=== PATIENT | female | born 1945 | race Caucasian/White ===

== ENCOUNTER 2018-05-03 14:35 | Emergency (ER) | payer OTHER ==
[~2018-05-03] VITALS: Ht 162.6 cm; Wt 81.6 kg
[2018-05-03 14:35] VITALS: BP_SYST 99
--- NOTE | 2018-05-03 14:40 | NUR ---
Patient to ER bed 08 to gown for evaluation. Side rails up.
[2018-05-03] MEDS ORDERED: NACL 0.9% 1,000 ML IV ONE (14:45)
[2018-05-03] MEDS ORDERED: ONDANSETRON HCL 4 MG/2 ML VIAL IVP ONE (14:45)
--- NOTE | 2018-05-03 14:45 | NUR ---
Pt brought by ambulance,A&Ox4, pt presents to ER with a syncope episode, BP prehospital 70/40, current BP 104/52 after 1 liter of NS administered by paramedics ,patient denies N/V, respirations even and unlabored , denies chest pain. pt states she is taking prophilactic TB medications due to possible TB exposure, pt placed on TB precautions, denies cough diaphoretic or fevers.
--- NOTE | 2018-05-03 14:50 | NUR ---
Dr Maciel at bedside examining patient
[2018-05-03 15:08] LABS: BASOPHILS % (AUTO) 0.2 % (0.0-2.0); EOSINOPHILS # (AUTO) 0.2 K/uL (0.0-0.4); EOSINOPHILS % (AUTO) 2.7 % (0.0-4.0); HEMOGLOBIN 12.7 g/dL (12.0-16.0); LYMPHOCYTES # (AUTO) 1.4 K/uL (1.0-5.5); LYMPHOCYTES % (AUTO) 18.4 % (20.5-51.5); MEAN CORPUSCULAR HEMOGLOBIN 30 pg (27-31); MEAN CORPUSCULAR HGB CONC 34 % (32-36); MEAN CORPUSCULAR VOLUME 90 fL (79.0-98.0); MONOCYTES # (AUTO) 0.5 K/uL (0.0-1.0); MONOCYTES % (AUTO) 6.8 % (1.7-9.3); NEUTROPHILS # (AUTO) 5.3 K/uL (1.8-7.7); NEUTROPHILS % (AUTO) 71.9 % (40.0-70.0); PLATELET COUNT (AUTO) 289 K/uL (130-430); RED BLOOD CELL COUNT(AUTO) 4.21 MIL/uL (4.2-6.2); RED CELL DISTRIBUTION WIDTH 14.1 % (9.0-15.0); WHITE BLOOD COUNT (AUTO) 7.4 K/uL (4.8-10.8)
[2018-05-03 15:27] LABS: CREATININE 0.84 mg/dL (0.55-1.30); POTASSIUM 3.7 mmol/L (3.5-5.1)
[2018-05-03 15:29] LABS: INR 1.1 (0.8-1.2); PROTHROMBIN TIME 11.3 SECS (9.5-12.5)
[2018-05-03 15:31] LABS: ALBUMIN 2.5 g/dL (3.4-4.8); TOTAL BILIRUBIN 0.5 mg/dL (0.0-1.0)
--- NOTE | 2018-05-03 15:38 | NUR ---
Patient refusing bedpan patient stood up to use commode , pt states she feels better, denies N/V or dizziness, denies chest pain, skin pink and warm,cap refill <3.
[2018-05-03 15:53] LABS: BILIRUBIN,URINE NEGATIVE (NEGATIVE); BLOOD, URINE NEGATIVE (NEGATIVE); CLARITY/URINE CLEAR (CLEAR); COLOR,URINE YELLOW (YELLOW); GLUCOSE,URINE NEGATIVE (NEGATIVE); KETONES,URINE NEGATIVE (NEGATIVE); LEUKOCYTE ESTERASE ,URINE NEGATIVE (NEGATIVE); NITRITE, URINE NEGATIVE (NEGATIVE); PH,URINE 7.5 (5.0-8.0); PROTEIN URINE NEGATIVE (NEGATIVE); UROBILINOGEN,URINE 0.2 (0.2-1.0)
--- NOTE | 2018-05-03 15:53 | NUR ---
[facility] patient is taking Isoniazid medication for TB phrophylaxis. Dr Maciel notified.
--- NOTE | 2018-05-03 16:34 | NUR ---
Patient given written and verbal discharge instructions and verbalizes understanding. ER MD Maciel discussed with patient the results and treatment provided. Patient in stable condition. ID arm band removed. IV catheter removed intact and dressing applied, no active bleeding. No Rx given. Patient educated on pain management and to follow up with PMD. Pain Scale 0. Opportunity for questions provided and answered. Medication side effect fact sheet provided.
[2018-05-03 16:35] VITALS: BP_SYST 105
== END 2018-05-03 16:35 | disposition home or self-care (01) ==
LOC: SED 14:35
DX: R55 Syncope and collapse (principal); I95.9 Hypotension, unspecified; Z20.1 Contact with and (suspected) exposure to tuberculosis
CPT/HCPCS: 36415; 71045; 80053; 81003; 83605; 84484; 85025; 85610; 85730; 87040; 87086; 93005; 96360; 99284; J7030; J2405